=== PATIENT | male | born 1965 | race Caucasian/White ===

== ENCOUNTER 2023-05-08 09:58 | Outpatient (OUT) | payer OTHER, SELFPAY ==
--- NOTE | 2023-05-08 10:15 | XR_ITS ---
[address] [address] Patient Name: OLENA MCCONNELL MRN: [id number] date: 1965 Sex: M Assigned Patient Location: LAB Current Patient Location: LAB Accession/Order Number: [id number] Exam Date: 05/08/2023 10:20 Report Date: 05/08/2023 11:53 At the request of: GULSHAN IZQUIERDO Procedure: XR shoulder RT min 2V EXAM: XR shoulder RT min 2V HISTORY: Right shoulder pain M25.511 COMPARISON: None. TECHNIQUE: 2 views FINDINGS: No acute fracture or dislocation. Mild to moderate degenerative change of the acromioclavicular and glenohumeral joints. Unremarkable soft tissues. XR/XR shoulder RT min 2V IMPRESSION: Degenerative changes as above. Electronically authenticated by: DRE GUAJARDO Date: 05/08/2023 11:53
[2023-05-08 10:17] LABS: Basophils Percent Auto 0.2 % (0.2-2.0); Eosinophils Absolute Auto 0.1 10^3/uL (0.0-0.7); Eosinophils Percent Auto 1.6 % (0.9-7.0); Hematocrit 42.8 % (42.0-54.0); Hemoglobin 15.5 g/dL (14.0-18.0); Immature Granulocytes Abs Auto 0.02 10^3/uL (0.00-0.03); Immature Granulocytes Pct Auto 0.4 % (0.0-0.5); Lymphocytes Absolute Auto 1.1 10^3/uL (1.2-3.8); Lymphocytes Percent Auto 19.9 % (20.5-60.0); Mean Corpuscular HGB Conc 36.2 g/dL (29.9-35.2); Mean Corpuscular Hemoglobin 31.8 pg (25.9-34.0); Mean Corpuscular Volume 87.7 fL (80.0-94.0); Mean Platelet Volume 9.9 fL (9.5-13.5); Monocytes Absolute Auto 0.5 10^3/uL (0.3-0.8); Monocytes Percent Auto 8.3 % (1.7-12.0); Neutrophils Absolute Auto 3.9 10^3/uL (1.4-6.5); Neutrophils Percent Auto 69.6 % (43.0-75.0); Platelet Count 220 10^3/uL (150-450); Red Blood Count 4.88 10^6/uL (4.70-6.10); Red Cell Distribution Width 12.3 % (11.0-15.0); White Blood Count 5.6 10^3/uL (4.0-11.0)
[2023-05-08 11:58] LABS: Alanine Aminotransferase 44 U/L (16-63); Albumin Globulin Ratio 1.1; Albumin Level 3.9 g/dL (3.4-5.0); Alkaline Phosphatase 99 U/L (46-116); Anion Gap 9.9; Aspartate Amino Transferase 19 U/L (15-37); BUN Creatinine Ratio 10.7; Bilirubin Total 0.8 mg/dL (0.2-1.0); Carbon Dioxide 29.4 mmol/L (21.0-32.0); Chloride 104 mmol/L (98-107); Chol HDL Ratio 5.5; Cholesterol 215 mg/dL (<=200); Estimated GFR (African America >60 (>=60); Estimated GFR (Non-African Ame >60 (>=60); Free T3 2.59 pg/mL (2.18-3.98); Globulin 3.6 g/dL; Glucose 116 mg/dL (74-106); HDL Cholesterol 39 mg/dL (40-60); Potassium 4.3 mmol/L (3.5-5.1); Sodium 139 mmol/L (136-145); Thyroid Stimulating Hormone 3.055 uIU/mL (0.358-3.740); Total Protein 7.5 g/dL (6.4-8.2); Triglycerides 102 mg/dL (<=150); VLDL CHOLESTEROL 20.4 mg/dL
[2023-05-08 11:59] LABS: Prostate Specific Antigen Scrn 1.13 ng/mL (<=4.00)
[2023-05-08 15:32] LABS: Estimated Average Glucose 105 mg/dL; Glycohemoglobin A1C 5.3 % (4.5-6.2)
== END 2023-05-08 09:59 | disposition home or self-care (01) ==
LOC: LAB 10:01
PROVIDERS: PCP Family Medicine; Visit Provider Family Medicine
DX: Z00.00 Encounter for general adult medical examination without abnormal findings (principal); Z12.5 Encounter for screening for malignant neoplasm of prostate; M25.511 Pain in right shoulder
CPT/HCPCS: 36415; 73030; 80053; 80061; 83036; 84436; 84443; 84481; 85025; G0103

== ENCOUNTER 2023-07-27 11:53 | Outpatient (OUT) | payer OTHER, SELFPAY ==
--- NOTE | 2023-07-27 | XR_ITS ---
The [address] [address] Patient Name: OLENA MCCONNELL MRN: [id number] date: 1965 Sex: M Assigned Patient Location: [facility] Current Patient Location: RAD Accession/Order Number: [id number] Exam Date: 07/27/2023 12:00 Report Date: 07/27/2023 12:21 At the request of: GULSHAN IZQUIERDO Procedure: XR chest 2V EXAM: XR chest 2V HISTORY: J 29.1 Acute bronchiolitis COMPARISON: 11/02/2022 TECHNIQUE: Upright PA and lateral chest x-ray FINDINGS: There is been interval development of atelectasis or infiltrates at the lung bases. The upper lungs are clear and there is no evidence of an effusion or pneumothorax. The heart is nonenlarged and the vasculature is not distended. The osseous structures are grossly intact. XR/XR chest 2V IMPRESSION: Interval development of atelectasis or infiltrates at the lung bases. There is no evidence of overt cardiac decompensation. Electronically authenticated by: WILFRED BEASLEY Date: 07/27/2023 12:21
== END 2023-07-27 11:54 | disposition home or self-care (01) ==
LOC: RAD 11:55
PROVIDERS: PCP Family Medicine; Visit Provider Family Medicine
DX: J21.9 Acute bronchiolitis, unspecified (principal)
CPT/HCPCS: 71046

== ENCOUNTER 2023-08-07 08:39 | Outpatient (OUT) | payer OTHER, SELFPAY ==
--- NOTE | 2023-08-07 08:47 | CT_ITS ---
[address] [address] Patient Name: OLENA MCCONNELL MRN: [id number] date: 1965 Sex: M Assigned Patient Location: CT Current Patient Location: Accession/Order Number: [id number] Exam Date: 08/07/2023 08:55 Report Date: 08/08/2023 00:02 At the request of: GULSHAN IZQUIERDO Procedure: CT chest wo con EXAMINATION: CT chest wo con HISTORY: Abnormal Findings On Diagnostic Imaging R93.89 COMPARISON: XR chest 07/27/2023 TECHNIQUE: Multi-planar CT images were obtained without and/or with IV contrast as indicated by examination type. Axial, Coronal, and Sagittal images. Dose reduction techniques were achieved by using automated exposure control and/or adjustment of mA and/or kV according to patient size and/or use of iterative reconstruction technique. FINDINGS: LUNGS: No visible pulmonary disease. PLEURA: No mass, effusion, or pneumothorax. VASCULATURE: No abnormality. SANDRA: No mass or adenopathy. MEDIASTINUM: No mass or adenopathy. CARDIAC: No enlargement, pericardial thickening, or significant calcification. AORTA: No aneurysm or dissection. CHEST WALL: No mass or axillary adenopathy. BONES: No bone lesion or fracture. LIMITED ABDOMEN: No suspicious findings Limited images of the upper abdomen. OTHER: Negative. CT/CT chest wo con IMPRESSION: 1. No pulmonary infiltrates or suspicious findings. Clearing of findings seen on recent chest x-ray. Electronically authenticated by: JUAN TRIPATHI Date: 08/08/2023 00:02
== END 2023-08-07 08:40 | disposition home or self-care (01) ==
LOC: CT 08:40
PROVIDERS: PCP Family Medicine; Visit Provider Family Medicine
DX: R93.89 Abnormal findings on diagnostic imaging of other specified body structures (principal)
CPT/HCPCS: 71250

== ENCOUNTER 2024-04-22 10:21 | Outpatient (OUT) | payer OTHER, SELFPAY ==
[2024-04-22 10:46] LABS: Basophils Percent Auto 0.5 % (0.2-2.0); Eosinophils Percent Auto 0.5 % (0.9-7.0); Hematocrit 46.1 % (42.0-54.0); Hemoglobin 16.3 g/dL (14.0-18.0); Immature Granulocytes Abs Auto 0.01 10^3/uL (0.00-0.03); Immature Granulocytes Pct Auto 0.2 % (0.0-0.5); Lymphocytes Absolute Auto 1.2 10^3/uL (1.2-3.8); Lymphocytes Percent Auto 19.5 % (20.5-60.0); Mean Corpuscular HGB Conc 35.4 g/dL (29.9-35.2); Mean Corpuscular Hemoglobin 31.7 pg (25.9-34.0); Mean Corpuscular Volume 89.5 fL (80.0-94.0); Mean Platelet Volume 10.1 fL (9.5-13.5); Monocytes Absolute Auto 0.4 10^3/uL (0.3-0.8); Monocytes Percent Auto 6.5 % (1.7-12.0); Neutrophils Absolute Auto 4.5 10^3/uL (1.4-6.5); Neutrophils Percent Auto 72.8 % (43.0-75.0); Platelet Count 245 10^3/uL (150-450); Red Blood Count 5.15 10^6/uL (4.70-6.10); Red Cell Distribution Width 12.3 % (11.0-15.0); White Blood Count 6.1 10^3/uL (4.0-11.0)
[2024-04-22 11:04] LABS: Estimated Average Glucose 103 mg/dL; Glycohemoglobin A1C 5.2 % (4.5-6.2)
[2024-04-22 11:46] LABS: Alanine Aminotransferase 39 U/L (16-63); Albumin Globulin Ratio 1.2; Albumin Level 4.1 g/dL (3.4-5.0); Alkaline Phosphatase 121 U/L (46-116); Aspartate Amino Transferase 17 U/L (15-37); BUN Creatinine Ratio 10.5; Bilirubin Total 0.9 mg/dL (0.2-1.0); Calcium 8.8 mg/dL (8.5-10.1); Carbon Dioxide 29.5 mmol/L (21.0-32.0); Chloride 103 mmol/L (98-107); Chol HDL Ratio 4.7; Cholesterol 249 mg/dL (<=200); Estimated GFR (African America >60 (>=60); Estimated GFR (Non-African Ame >60 (>=60); Globulin 3.4 g/dL; Glucose 111 mg/dL (74-106); HDL Cholesterol 53 mg/dL (40-60); Potassium 4.5 mmol/L (3.5-5.1); Sodium 140 mmol/L (136-145); Total Protein 7.5 g/dL (6.4-8.2); Triglycerides 77 mg/dL (<=150); VLDL CHOLESTEROL 15.4 mg/dL
[2024-04-22 12:00] LABS: Prostate Specific Antigen Scrn 0.86 ng/mL (<=4.00)
== END 2024-04-22 10:22 | disposition home or self-care (01) ==
LOC: LAB 10:22
PROVIDERS: PCP Family Medicine; Visit Provider Family Medicine
DX: Z00.00 Encounter for general adult medical examination without abnormal findings (principal)
CPT/HCPCS: 36415; 80053; 80061; 83036; 85025; G0103